=== PATIENT | male | born 1985 | race Caucasian/White ===

== ENCOUNTER 2025-05-11 15:37 | Emergency (ER) | payer BC, OTHER ==
[~2025-05-11 15:37] MED LIST: Iopamidol 370 76% 100 ML VIAL ONE
[2025-05-11 16:14] LABS: #Basophils 0.1 thou/uL (0.0-0.2); #Eosinophils 0.1 thou/uL (0.0-0.7); #Lymphocytes 1.4 thou/uL (1.20-3.40); #Monocytes 0.4 thou/uL (0.11-0.59); #Neutrophils 4.2 thou/uL (1.40-6.50); %Basophils 1.2 % (0.0-1.0); %Eosinophils 0.9 % (0.0-10.0); %Lymphocytes 23.2 % (21.0-51.0); %Monocytes 6.0 % (0.0-10.0); %Neutrophils 68.6 % (42.0-75.0); Hematocrit 53.1 % (42.0-52.0); Hemoglobin 17.4 g/dL (14.0-18.0); Mean Corpuscular Hemoglobin 33.0 pg (27.0-31.0); Mean Corpuscular Volume 101.0 fl (78.0-98.0); Platelet Count 268 10x3/uL (130-400); Red Blood Cell (RBC) Count 5.28 mill/uL (4.70-6.10); White Blood Cell (WBC) Count 6.1 10x3/uL (4.8-10.8)
[2025-05-11 16:27] LABS: ALT (SGPT) 33 U/L (Less than 45); AST (SGOT) 32 U/L (11-34); Albumin 4.5 g/dL (3.1-4.5); Alkaline Phosphatase 70 U/L (40-110); Anion Gap 18 mmol/L (10-20); BUN (Urea Nitrogen) 8 mg/dL (8.9-20.6); Bilirubin, Total 0.8 mg/dL (0.3-1.2); Calc. Creatinine Clearance 0 mL/min (70-130); Calcium 9.1 mg/dL (7.8-10.44); Carbon Dioxide 25 mmol/L (22-29); Chloride 100 mmol/L (98-107); Globulin 3.2 g/dL (2.4-3.5); Glucose 88 mg/dL (70-105); Potassium 4.2 mmol/L (3.5-5.1); Sodium 139 mmol/L (136-145)
[2025-05-11 16:32] LABS: Troponin I Less than 0.010 ng/mL (< 0.028)
== END 2025-05-11 19:20 | disposition home or self-care (01) ==
LOC: BURERS 15:37
DX: R07.89 Other chest pain (principal); I10 Essential (primary) hypertension; Z79.899 Other long term (current) drug therapy; Z87.891 Personal history of nicotine dependence
CPT/HCPCS: 36415; 71045; 71275; 74174; 80053; 83880; 84484; 85025; 93005; Q9967